=== PATIENT | female | born 1965 | race Caucasian/White ===

== ENCOUNTER 2021-12-30 11:02 | Emergency (ER) | payer OTHER ==
[~2021-12-30 11:02] MED LIST: Iopamidol 300 61% 100 ML VIAL FS ONE
[2021-12-30 13:00] LABS: #Monocytes 0.9 10x3/uL (0.0-1.1); #Neutrophils 5.2 10x3/uL (1.5-8.4); %Basophils 0.1 % (0.0-2.0); %Eosinophils 0.4 % (0.0-6.0); %Lymphocytes 16.7 % (18.0-47.0); %Monocytes 11.8 % (0.0-10.0); %Neutrophils 70.7 % (40.0-75.0); Hemoglobin 12.2 g/dL (12.0-15.5); Mean Corpuscular HGB CONC 34.5 g/dL (32.0-36.0); Mean Corpuscular Hemoglobin 31.2 pg (27.0-33.0); Mean Corpuscular Volume 90.5 fl (81.6-98.3); Mean Platelet Volume 10.5 fl (7.4-10.4); Platelet Count 259 10x3/uL (150-450); RBC Distribution Width 11.9 % (11.5-14.5); Red Blood Cell (RBC) Count 3.91 10x6/uL (3.90-5.03); White Blood Cell (WBC) Count 7.4 10x3/uL (3.5-10.5)
[2021-12-30 13:16] LABS: ALT (SGPT) 14 U/L (8-55); AST (SGOT) 15 U/L (5-34); Albumin 4.1 g/dL (3.5-5.0); Alkaline Phosphatase 48 U/L (40-110); Anion Gap 15 mmol/L (10-20); BUN (Urea Nitrogen) 8 mg/dL (9.8-20.1); Bilirubin, Total 0.9 mg/dL (0.2-1.2); Calc. Creatinine Clearance 0 mL/min (70-130); Calcium 9.2 mg/dL (7.8-10.44); Carbon Dioxide 23 mmol/L (22-29); Chloride 105 mmol/L (98-107); Globulin 2.6 g/dL (2.4-3.5); Glucose 95 mg/dL (70-105); Lipase 10 U/L (8-78); Potassium 3.7 mmol/L (3.5-5.1); Protein, Total 6.7 g/dL (6.0-8.3); Sodium 139 mmol/L (136-145)
[2021-12-30] MEDS ORDERED: Piperacillin/Tazobactam 4.5 GM VIAL ONE (13:33)
[2021-12-30 14:46] LABS: SARS-CoV-2 NAA Rapid Test Not Detected (NotDetected)
[2021-12-30] MEDS ORDERED: EPINEPHrine 1 MG/ML AMP ONE (14:52)
[2021-12-30] MEDS ORDERED: Bupivacaine 0.25% HCL 30 ML VIAL ONE (14:52)
[2021-12-30] MEDS ORDERED: Fentanyl 100 MCG/2 ML VIAL ONE ×2 (14:56→16:05)
[2021-12-30] MEDS ORDERED: Midazolam HCl 2 mg/2 ml Vial ONE (14:56)
[2021-12-30] MEDS ORDERED: PROPOFOL 20 ML ONE (14:56)
[2021-12-30] MEDS ORDERED: ePHEDrine Sulfate 50 MG/10 ML VIAL ONE (14:57)
[2021-12-30] MEDS ORDERED: Lidocaine 2% Jelly 5 ML TUBE ONE (15:03)
[2021-12-30] MEDS ORDERED: Dexamethasone 4 mg/ml Vial ONE (15:45)
[2021-12-30] MEDS ORDERED: Lidocaine 1% PF 5 ML VIAL ONE (15:45)
[2021-12-30] MEDS ORDERED: Ondansetron PF 4 MG/2 ML Vial ONE (15:45)
[2021-12-30] MEDS ORDERED: Ketorolac Tromethamine 30 MG/ML VIAL ONE (15:45)
[2021-12-30] MEDS ORDERED: SUGAMMADEX SODIUM 200 MG/2 ML VIAL ONE ×2 (15:48→15:54)
== END 2021-12-30 15:11 | disposition admitted as inpatient to this hospital (09) ==
LOC: CSHERS 11:02
PROC: 0DTJ4ZZ Resection of Appendix, Percutaneous Endoscopic Approach (ICD-10-PCS; principal; 2021-12-30)
DX: K35.80 Unspecified acute appendicitis (principal); Z20.822 Contact with and (suspected) exposure to COVID-19
CPT/HCPCS: 74177; 80053; 83690; 85025; 88304; 93005; 96374; J0171; J1100; J1885; J2250; J2405; J2543; J2704; J3010; Q9967; S0020; U0002

== ENCOUNTER 2022-02-06 10:50 | Outpatient (CLI) | payer OTHER | END 2022-02-06 10:51 | disposition home or self-care (01) | LOC: CSHRAD 10:50 | PROVIDERS: ATTEND Nurse Practitioner | DX: T82.120A Displacement of cardiac electrode, initial encounter (principal) | CPT/HCPCS: 71046 ==

== ENCOUNTER 2022-04-29 10:03 | Outpatient (CLI) | payer OTHER | END 2022-04-29 10:04 | disposition home or self-care (01) | LOC: CSHRAD 10:03 | PROVIDERS: ATTEND Nurse Practitioner | DX: R07.89 Other chest pain (principal); I50.22 Chronic systolic (congestive) heart failure; Z95.810 Presence of automatic (implantable) cardiac defibrillator | CPT/HCPCS: 71046 ==

== ENCOUNTER 2023-12-26 18:24 | Emergency (ER) | payer OTHER ==
[2023-12-26 19:23] LABS: BHCG - Serum Negative (NEGATIVE); Pregs Control Background? CLEAR/WHITE (CLR/WHITE); Pregs Control Bar Appear? YES (CONTROL BAR)
[2023-12-26 19:26] LABS: #Basophils 0.03 10x3/uL (0.0-0.2); #Eosinphils 0.05 10x3/uL (0.0-0.5); #Monocytes 0.43 10x3/uL (0.0-1.1); %Basophils 0.7 % (0.0-2.0); %Eosinophils 1.1 % (0.0-6.0); %Lymphocytes 38.7 % (18.0-47.0); %Monocytes 9.3 % (0.0-10.0); Hematocrit 37.7 % (34.9-44.5); Hemoglobin 12.8 g/dL (12.0-15.5); Mean Corpuscular Volume 91.3 fl (81.6-98.3); Mean Platelet Volume 10.7 fl (7.4-10.4); Platelet Count 262 10x3/uL (150-450); RBC Distribution Width 11.9 % (11.5-14.5); Red Blood Cell (RBC) Count 4.13 10x6/uL (3.90-5.03); White Blood Cell (WBC) Count 4.6 10x3/uL (3.5-10.5)
[2023-12-26 19:28] LABS: ALT (SGPT) 16 U/L (8-55); AST (SGOT) 23 U/L (5-34); Albumin 4.8 g/dL (3.5-5.0); Alkaline Phosphatase 45 U/L (40-110); Anion Gap 14 mmol/L (10-20); BUN (Urea Nitrogen) 13 mg/dL (9.8-20.1); Calc. Creatinine Clearance 0 mL/min (70-130); Carbon Dioxide 27 mmol/L (22-29); Chloride 104 mmol/L (98-107); Estimated GFR 92; Glucose 139 mg/dL (70-105); Potassium 3.9 mmol/L (3.5-5.1); Protein, Total 7.8 g/dL (6.0-8.3); Sodium 141 mmol/L (136-145)
[2023-12-26 19:45] LABS: CK (CPK) 113 U/L (29-168); Lipase 15 U/L (8-78)
[2023-12-26 19:51] LABS: Troponin I Less than 0.010 ng/mL (< 0.028)
== END 2023-12-26 20:17 | disposition home or self-care (01) ==
LOC: CSHERS 18:24
DX: R53.1 Weakness (principal)
CPT/HCPCS: 71045; 82550; 83690; 83735; 84443; 84484; 84703; 93005